=== PATIENT | male | born 1970 | race African-American/Black ===

== ENCOUNTER 2020-02-27 06:22 | Emergency (ER) | payer OTHER, SELFPAY ==
--- NOTE | 2020-02-27 07:35 | ER ---
Nurse's Notes [facility] Name: Sherri Rubin Age: 50 yrs Sex: Male : 1970 Arrival Date: 02/27/2020 Time: 06:26 Bed 19 Private MD: Diagnosis: Urethritis and urethral syndrome;Sexually transmitted Infection Presentation: 02/26 06:45 Chief complaint: Patient states: I was in penitentiary, and when I was released I had been home sg with my significant other, and I had found out that she had cheated on me, and well my nora has been hurting and Im not really sure if its a UTI or not because it does hurt too when I pee, and I had some amoxicllin at the house and I just took one or two doses but that wasn't helping so I needed to come here to get this checked out. Coronavirus screen: Client denies travel out of the [place] in the last 14 days. At this time, the client does not indicate any symptoms associated with coronavirus-19. Ebola Screen: Patient negative for fever greater than or equal to 101.5 degrees Fahrenheit, and additional compatible Ebola Virus Disease symptoms Patient denies exposure to infectious person. Patient denies travel to an Ebola-affected area in the 21 days before illness onset. No symptoms or risks identified at this time. Initial Sepsis Screen: Does the patient meet any 2 criteria? No. Patient's initial sepsis screen is negative. Does the patient have a suspected source of infection? Yes: Dysuria/Frequency/Urgency/UTI. Risk Assessment: Do you want to hurt yourself or someone else? Patient reports no desire to harm self or others. Onset of symptoms was February 23, 2020. Care prior to arrival: None. Activity prior to arrival: None. Transition of care: patient was not received from another setting of care. 06:45 Method Of Arrival: Ambulatory sg 06:45 Acuity: PEMA 3 sg Historical: - Allergies: 06:48 No Known Allergies; sg - Home Meds: 06:48 None [Active]; sg - PMHx: 06:48 None; sg - PSHx: 06:48 None; sg - Immunization history:: Adult Immunizations up to date. - Social history:: Smoking status: Patient reports the use of cigarette tobacco products. - Family history:: not pertinent. - Hospitalizations: : No recent hospitalization is reported. Screenin:35 Abuse screen: Denies threats or abuse. Denies injuries from another. Nutritional sv screening: No deficits noted. Tuberculosis screening: No symptoms or risk factors identified. Fall Risk None identified. Assessment: 07:35 General: Appears in no apparent distress. comfortable, Behavior is calm, cooperative, sv appropriate for age. Pain: Complains of pain in pelvis. Neuro: Level of Consciousness is awake, alert, obeys commands, Oriented to person, place, time, situation, Moves all extremities. Full function Gait is steady. Respiratory: Respiratory effort is even, unlabored, Respiratory pattern is regular, symmetrical. : Reports discharge, from penis that is pain penis. 07:36 Reassessment: Pt up for discharge but waiting for IM shot time before discharge. sv 07:59 Reassessment: Patient appears in no apparent distress at this time. No changes from sv previously documented assessment. Patient and/or family updated on plan of care and expected duration. Pain level reassessed. Patient is alert, oriented x 3, equal unlabored respirations, skin warm/dry/pink. Vital Signs: 06:45 BP 142 / 72; Pulse 77; Resp 16; Pulse Ox 100% on R/A; Pain 4/10; sg ED Course: 06:26 Patient arrived in ED. am2 06:45 Arm band placed on. sg 06:46 Timur Tello MD is Attending Physician. [facility] 06:48 Triage completed. sg 07:06 Attending Physician role handed off by Timur Tello MD rn 07:06 Brenden Pedroza MD is Attending Physician. rn 07:21 Lauren Stewart RN is Primary Nurse. sv 07:35 Patient has correct armband on for positive identification. Bed in low position. Call sv light in reach. 07:59 No provider procedures requiring assistance completed. Patient did not have IV access sv during this emergency room visit. Administered Medications: 07:35 Drug: Rocephin (cefTRIAXone) 250 mg Route: IM; Site: left gluteus; sv 07:59 Follow up: Response: No adverse reaction sv 07:35 Drug: Flagyl 2 grams Route: PO; sv 07:59 Follow up: Response: No adverse reaction sv Outcome: 07:34 Discharge ordered by . rn 07:59 Patient left the ED. aa5 07:59 Discharged to home ambulatory. 07:59 Condition: stable 07:59 Discharge instructions given to patient, Instructed on discharge instructions, follow up and referral plans. medication usage, Demonstrated understanding of instructions, follow-up care, medications, Prescriptions given X 1. Signatures: Lauren Stewart RN RN sv Gay, Steven, RN RN sg Nieto, Roman, MD MD rn Calderon, Audri, RN RN aa5 Moreno, Amanda am2 Holmes, Maurice, MD MD 7
--- NOTE | 2020-02-27 07:35 | EDPHYS ---
Physician Documentation [facility] Name: Sherri Rubin Age: 50 yrs Sex: Male : 1970 Arrival Date: 02/27/2020 Time: 06:26 Bed 19 Private MD: ED Physician Brenden Pedroza HPI: 02/26 07:29 This 50 yrs old Black Male presents to ER via Ambulatory with complaints of Penile rn Pain, Pain With Urination. 07:29 The patient presents with symptoms include purulent penile discharge. rn 07:30 Onset: The symptoms/episode began/occurred at an unknown time. Modifying factors: The rn symptoms are alleviated by nothing, the symptoms are aggravated by urinating. Associated signs and symptoms: Pertinent negatives: abdominal pain, fever, hematuria. Severity of symptoms: At their worst the symptoms were mild, in the emergency department the symptoms are unchanged. The patient has not experienced similar symptoms in the past. The patient has not recently seen a physician. Historical: - Allergies: 06:48 No Known Allergies; sg - Home Meds: 06:48 None [Active]; sg - PMHx: 06:48 None; sg - PSHx: 06:48 None; sg - Immunization history:: Adult Immunizations up to date. - Social history:: Smoking status: Patient reports the use of cigarette tobacco products. - Family history:: not pertinent. - Hospitalizations: : No recent hospitalization is reported. ROS: 07:30 Constitutional: Negative for fever, chills, and weight loss, Abdomen/GI: Negative for rn abdominal pain, nausea, vomiting, diarrhea, and constipation, : + penile discharge Exam: 07:30 Constitutional: This is a well developed, well nourished patient who is awake, alert, rn and in no acute distress. Abdomen/GI: soft, non-tender Male : No swelling or lesions noted Vital Signs: 06:45 BP 142 / 72; Pulse 77; Resp 16; Pulse Ox 100% on R/A; Pain 4/10; sg MDM: 07:06 Patient medically screened. rn 07:30 Differential diagnosis: urethritis, STI. Data reviewed: vital signs, nurses notes, and rn as a result, I will discharge patient. Counseling: I had a detailed discussion with the patient and/or guardian regarding: the historical points, exam findings, and any diagnostic results supporting the discharge/admit diagnosis, the need for outpatient follow up, to return to the emergency department if symptoms worsen or persist or if there are any questions or concerns that arise at home. Special discussion: I discussed with the patient/guardian in detail that at this point there is no indication for admission to the hospital. It is understood, however, that if the symptoms persist or worsen the patient needs to return immediately for re-evaluation. Administered Medications: 07:35 Drug: Rocephin (cefTRIAXone) 250 mg Route: IM; Site: left gluteus; sv 07:59 Follow up: Response: No adverse reaction sv 07:35 Drug: Flagyl 2 grams Route: PO; sv 07:59 Follow up: Response: No adverse reaction sv Disposition: 02/27/20 07:34 Discharged to Home. Impression: Urethritis and urethral syndrome, Sexually transmitted Infection. - Condition is Stable. - Discharge Instructions: Sexually Transmitted Disease. - Prescriptions for Doxycycline Hyclate 100 mg Oral Tablet - take 1 tablet by ORAL route every 12 hours; 20 tablet. - Medication Reconciliation Form, Thank You Letter, Antibiotic Education, Prescription Opioid Use, Work release form form. - Follow up: Private Physician; When: As needed; Reason: Recheck today's complaints, Re-evaluation by your physician. - Problem is new. - Symptoms are unchanged. Signatures: Lauren Stewart RN RN sv Gay, Steven, RN RN sg Nieto, Roman, MD MD rn Calderon, Audri, RN RN aa5 Corrections: (The following items were deleted from the chart) 07:59 07:34 02/27/2020 07:34 Discharged to Home. Impression: Urethritis and urethral aa5 syndrome; Sexually transmitted Infection. Condition is Stable. Forms are Medication Reconciliation Form, Thank You Letter, Antibiotic Education, Prescription Opioid Use. Follow up: Private Physician; When: As needed; Reason: Recheck today's complaints, Re-evaluation by your physician. Problem is new. Symptoms are unchanged. rn
[2020-02-27] MEDS ORDERED: LIDOCAINE 1% MPF 2 ML AMPULE ONE (07:39)
[2020-02-27] MEDS ORDERED: metroNIDAZOLE 500 MG TABLET ONE ×2 (07:40→07:45)
[2020-02-27] MEDS ORDERED: CEFTRIAXONE 250 MG/VIAL ONE (07:40)
[2020-02-27 09:28] VITALS: BP 142/72; O2SAT 100
== END 2020-02-27 07:59 | disposition home or self-care (01) ==
LOC: ER 06:22
DX: N34.2 Other urethritis (principal); N34.3 Urethral syndrome, unspecified; A64 Unspecified sexually transmitted disease; F17.210 Nicotine dependence, cigarettes, uncomplicated
CPT/HCPCS: 96372; 99283; J0696; J2001